=== PATIENT | male | born 1985 | race Caucasian/White ===

== ENCOUNTER → 2018-01-02 15:39 | Outpatient (CLI) | payer OTHER, SELFPAY ==
[2018-01-02 16:08] LABS: ALB/GLOB Ratio 0.8 RATIO (0.9-2.4); AST(SGOT) 29 U/L (15-37); Alanine Aminotransfer ALT/SGPT 35 U/L (16-61); Albumin, Serum 3.7 g/dL (3.2-5.0); Alkaline Phosphatase 87 U/L (45-117); Anion Gap 7 (5-15); BUN 11 mg/dL (7-18); BUN/Creat Ratio 9.5 RATIO (10-20); Calcium,Total 9.3 mg/dL (8.5-10.1); Chloride 102 mmol/L (98-107); Creatinine, Serum 1.16 mg/dL (0.70-1.30); EST Glomerular Filtration Rate 77 mL/min (>60); Est Glom Filt Rate - Afr Amer 93 mL/min (>60); Globulin 4.5 g/dL (2.2-4.2); Glucose 86 mg/dL (74-106); Potassium 4.2 mmol/L (3.5-5.1); Protein, Total 8.2 g/dL (6.4-8.2); Sodium Level 136 mmol/L (136-145)
== END ==
PROVIDERS: Family Provider Family Medicine; PCP Family Medicine
DX: A69.20 Lyme disease, unspecified (principal); R50.9 Fever, unspecified
CPT/HCPCS: 80053

== ENCOUNTER 2021-04-10 08:26 | Emergency (ER) | payer OTHER, SELFPAY ==
[2021-04-10 08:27] VITALS: BP 135/91; PULSE 97; RESP 16; TEMP 36.2; O2SAT 100; BMI 26.4
--- NOTE | 2021-04-10 08:36 | EDS_ITS ---
HPI History of Present Illness Chief Complaint: Other, Pain/Inj Narrative Narrative: 35-year-old male presenting with bilateral calf pain. He states is worse on the right. Patient states that he has had COVID-19 since . He feels better today although he has been run down a little bit. He describes her symptoms as fever, chills, body aches initially. Patient states that he has not had any chest pain or shortness of breath but did have a cough. He states that his family wanted him to get checked for blood clots due to having Covid. PFSH PFSH Medical History no medical history Home Medications amlodipine 5 mg PO DAILY 04/10/21 [History Last Taken Unknown] Allergy/AdvReac Type Severity Reaction Status Date / Time No Known Allergies Allergy Verified 11/27/13 10:04 Surgical History no surgical history Social History Smoking Status: Current every day smoker tobacco type: cigarettes ROS ROS ED Constitutional Constitutional ED: Reports chills and fever(s) Eyes Eyes: Denies blurry vision or diplopia ENT ENT ED: Denies rhinorrhea or sore throat Cardiovascular Cardiovascular: Denies chest pain, palpitations or racing heartbeat Respiratory/Chest Respiratory/Chest: Reports cough; Denies dyspnea, dyspnea on exertion or sputum Gastrointestinal Gastrointestinal: Denies abdominal pain, nausea or vomiting Genitourinary Genitourinary ED: Denies dysuria or hematuria Musculoskeletal Musculoskeletal: Reports other Details: Bilateral calf pain Integumentary Denies Abrasions or rash Neurologic Neurologic: Denies headache(s) or paresthesias EXAM Physical Exam Const Vital Signs: 04/10/21 08:27 04/10/21 08:35 04/10/21 10:10 Temperature 97.1 F L Temperature Source Temporal Pulse Rate 97 62 Respiratory Rate 16 15 Respiratory Effort Normal Respiratory Pattern Normal Blood Pressure 135/91 H 138/74 H Blood Pressure Mean 105 Pulse Ox 100 98 Oxygen Delivery Method Room Air Positive well nourished and well developed General Appearance ED: well developed and NAD; Negative for pallor HEENT Reports moist mucous membranes Negative for trauma Eyes PERRL and EOMs intact bilaterally Chest Wall inspection of chest normal Resp normal respiratory effort and clear to auscultation bilaterally Auscultation: Negative for rales, rhonchi, wheezes or diminished lung sounds Cardio regular rate and regular rhythm Extremity Extremity Narrative: Bilateral lower extremities have pain on palpation to the calves. This is greater on the right calf. No cords palpated. No edema. No rashes. Bilateral pedal pulses 2+ and symmetric. Neuro oriented x3, CN's II-XII intact bilaterally and no sensory deficits noted Sensorium / Orientation: alert Motor Exam: strength 5/5 throughout Psych mental status grossly normal Skin no rashes or lesions noted and no wounds General Skin Exam: Negative for jaundice or pallor MDM MDM MDM Narrative Medical decision making narrative: Patient presenting with concern for DVT given that he has Covid positive and his family was concerned he could have developed this. He has no history of DVT/PE. His calves are tender to palpation bilaterally with the right being greater than the left however there are no cords palpated and the compartments are soft. Did obtain duplex of the bilateral lower extremities which showed no DVTs. Patient counseled on findings . He is ambulatory without crutches. He will be discharged home to quarantine. He is counseled on stretching and icing. Patient stable discharge at this time. Impression: 1. Bilateral calf pain Radiography Diagnostic Testing: Radiology Impression Venous Doppler Study 04/10/21 08:36 Interpretation Summary No evidence for acute deep venous thrombosis bilateral lower extremities with patent and compressible bilateral great saphenous veins. Abbreviated COVID-19 protocol Ordering Physician: Nathan Tom Referring Physician: Сергей Medina Performed By: Jessica Jeffrey RVT Discharge Plan Triage Chief Complaint: Other, Pain/Inj ED Provider: Nathan Tom Dx/Rx/DC Orders Instructions: ED Leg Spasm Prescriptions: No Action amlodipine 5 mg tablet 5 mg PO DAILY RF: 0 Primary Care Provider: Сергей Medina Referrals: Сергей Medina MD [Primary Care Provider] - Disposition Disposition: Home, Self Care Discharge Date/Time: 04/10/21 10:11
--- NOTE | 2021-04-10 08:36 | VDLE_ITS ---
Reason For Study: Pain RIGHT LEFT GSV is normal. GSV is normal. Right CFV, FV and PopV are compressible. Left CFV, FV and PopV are compressible. T/P Trunk is compressible. T/P Trunk is compressible. PTV is compressible. PTV is compressible. RT PerV is compressible. LT PerV is compressible. Procedure This is a venous duplex using B-mode, color flow and spectral Doppler. Exam performed portable in ED. The exam was abbreviated due to the COVID 19 protocol. A preliminary report was called and/or faxed to [facility]. VL/Venous Duplex US - Ad Extrem Interpretation Summary No evidence for acute deep venous thrombosis bilateral lower extremities with p atent and compressible bilateral great saphenous veins. Abbreviated COVID-19 protocol Ordering Physician: Nathan Tom Referring Physician: Сергей Medina Performed By: Jessica Jeffrey RVT
[2021-04-10 10:10] VITALS: BP 138/74; PULSE 62; RESP 15; O2SAT 98
== END 2021-04-10 10:11 | disposition home or self-care (01) ==
PROVIDERS: Emergency Provider Student in an Organized Health Care Education/Training Program; PCP Family Medicine
DX: M79.661 Pain in right lower leg (principal); M79.662 Pain in left lower leg; F17.210 Nicotine dependence, cigarettes, uncomplicated; Z79.899 Other long term (current) drug therapy
CPT/HCPCS: 93970; 99282

== ENCOUNTER 2021-06-15 10:18 | Emergency (ER) | payer OTHER, SELFPAY ==
[2021-06-15 10:19] VITALS: BP 163/102; PULSE 100; RESP 16; TEMP 36.4; O2SAT 98; BMI 26.2
--- NOTE | 2021-06-15 11:36 | EDS_ITS ---
HPI History of Present Illness Chief Complaint: Flank Pain Informant: patient Onset/Context/Timing Onset: Days (5) Context: Gradual Onset Timing: Continuous and Waxes and wanes Quality: Aching Location: right flank Worsened by: Nothing Relieved by: Nothing Narrative Narrative: Patient presents with right flank pain that has been waxing and waning over the last 5 days. Patient states that he has a history of kidney stones. Patient states that he thinks he passed 1 kidney stone but still has pain in his right flank. Patient describes as aching. Patient states nothing makes it worse and nothing makes it better. Patient admits to some dysuria and hematuria. Patient denies any fevers or chills. Patient denies any nausea or vomiting. [facility] Medical History Hypertension Kidney stone Home Medications amlodipine 5 mg PO DAILY 04/10/21 [History Last Taken Unknown] hydrocodone-acetaminophen 1 tab PO Q6H PRN PRN 3 Days #10 tablet 06/15/21 [Rx Last Taken Unknown] Allergy/AdvReac Type Severity Reaction Status Date / Time acetaminophen [From Percocet] Allergy Itching Verified 06/15/21 10:20 oxycodone [From Percocet] Allergy Itching Verified 06/15/21 10:20 Social History Smoking Status: Current every day smoker tobacco type: cigarettes ROS ROS ED Constitutional Constitutional ED: Denies chills or fever(s) Eyes Eyes: Denies blurry vision or change in vision ENT ENT ED: Denies rhinorrhea or sore throat Cardiovascular Cardiovascular: Denies chest pain or palpitations Respiratory/Chest Respiratory/Chest: Denies cough or dyspnea Gastrointestinal Gastrointestinal: Denies nausea or vomiting Genitourinary Genitourinary ED: Reports dysuria and hematuria Musculoskeletal Musculoskeletal: Reports back pain; Denies neck pain Integumentary Denies abscess or rash Neurologic Neurologic: Denies headache(s) or weakness Allergic/Immunologic Allergic/Immunologic ED: Denies mouth swelling or urticaria EXAM Physical Exam Const Vital Signs: 06/15/21 10:19 06/15/21 12:45 Temperature 97.5 F L Temperature Source Temporal Pulse Rate 100 73 Respiratory Rate 16 15 Blood Pressure 163/102 H 142/69 H Blood Pressure Mean 122 93 Pulse Ox 98 96 Oxygen Delivery Method Room Air Room Air Positive well nourished and well developed General Appearance ED: well developed HEENT Reports moist mucous membranes Neck supple and no JVD Resp normal respiratory effort and clear to auscultation bilaterally Cardio regular rate, regular rhythm and no murmurs GI normal to inspection, nondistended, normoactive bowel sounds and non-tender Palpation: soft Back/Spine General Back: CVA tenderness right Extremity normal to inspection General Extremety ED: Negative for edema or tenderness General Extremity: Negative for edema Neuro oriented x3, CN's II-XII intact bilaterally and no sensory deficits noted Sensorium / Orientation: alert Motor Exam: strength 5/5 throughout Psych mental status grossly normal Skin no rashes or lesions noted MDM MDM MDM Narrative Medical decision making narrative: Patient was given IV fluids, morphine, and Zofran. CBC shows a mild leukocytosis of 13.4. Comprehensive metabolic profile showed a slightly elevated creatinine of 1.31. Urinalysis does not show any evidence of urinary tract infection. Occult blood was 50 with 0-[address] scan of the abdomen pelvis was obtained. There is a 4 mm calculus in the right mid ureter. There is hydronephrosis and hydroureter noted. This was interpreted by the radiologist and reviewed by myself. Patient was advised of his findings. Patient was given a prescription for [place]. Patient was instructed to follow-up with his primary care physician in 3 to 5 days. Patient understood and was agreeable with the plan. All questions were answered. Lab Data Attestation: I reviewed the patient's lab results. Labs: Laboratory Results - last 24 hr 06/15/21 06/15/21 06/15/21 10:30 10:30 10:30 WBC 13.4 H RBC 5.52 Hgb 15.7 Hct 48.1 MCV 87.1 MCH 28.4 MCHC 32.6 RDW Std Deviation 40.1 RDW Coeff of Ana 12.7 Plt Count 295 MPV 10.8 Immature Gran % (Auto) 0.400 Neut % (Auto) 76.5 H Lymph % (Auto) 16.5 L [place] % (Auto) 3.8 Eos % (Auto) 2.2 Baso % (Auto) 0.6 Absolute Neuts (auto) 10.3 H Absolute Lymphs (auto) 2.22 Nucleated RBC % 0 Sodium 137 Potassium 3.5 Chloride 103 Carbon Dioxide 27.0 Anion Gap 7 BUN 14 Creatinine 1.31 H Estim Creat Clear Calc 72.88 Est GFR (MDRD) Af Amer 79 Est GFR (MDRD) Non-Af 66 BUN/Creatinine Ratio 10.7 Glucose 133 H Calcium 9.6 Total Bilirubin 0.30 AST 24 ALT 46 Alkaline Phosphatase 85 Total Protein 8.0 Albumin 4.5 Globulin 3.5 Albumin/Globulin Ratio 1.3 Urine Color Yellow Urine Clarity Clear Urine pH 7.0 Ur Specific [place] 1.010 Urine Protein 15 H Urine Glucose (UA) Normal Urine Ketones Negative Urine Occult Blood 50 H Urine Nitrite Negative Urine Bilirubin Negative Urine Urobilinogen Normal Ur Leukocyte Esterase Negative Urine RBC 0-5 SEEN Urine WBC 0 SEEN Ur Squamous Epith Cells 0 SEEN Urine Bacteria 0 SEEN Urine Mucus 0 SEEN Radiography Diagnostic Testing: Clinical Impression(s) from Imaging Studies Abdomen/Pelvis CT 06/15/21 11:42 IMPRESSION: 4 mm focus in the midportion of the right ureter causing right hydronephrosis and proximal right hydroureter. Electronically Signed: Mirza Olmedo MD at 12:07 EST , Service support , Discharge Plan Triage Chief Complaint: Flank Pain ED Provider: Palomo Martin Dx/Rx/DC Orders Clinical Impression: Calculus of right ureter Instructions: ED Kidney Stone w/ Colic Prescriptions: New hydrocodone-acetaminophen [hydrocodone-acetaminophen] 1 TABLET tablet 1 tab PO Q6H PRN PRN (Reason: Pain) 3 Days Qty: 10 RF: 0 No Action amlodipine 5 mg tablet 5 mg PO DAILY RF: 0 Primary Care Provider: Сергей Medina Referrals: Сергей Medina MD [Primary Care Provider] - 3-5 Days Disposition Disposition: Home, Self Care
[2021-06-15 11:37] LABS: Absolute Lymphocyte Count 2.22 X10^3/uL (0.83-4.51); Absolute Neutrophil Count 10.3 X10^3/uL (2.0-7.7); Basophil# 0.08 X10^3/uL; Basophil% 0.6 % (0-1); Eosinophils% 2.2 % (0-5); Hematocrit 48.1 % (40-54); Hemoglobin 15.7 g/dL (13.0-16.5); Lymphocyte # 2.22 X10^3/ul (0.83-4.51); Lymphocyte % 16.5 % (19-41); Mean Corp Hgb Conc 32.6 g/dL (32-36); Mean Corpuscular Hgb 28.4 pg (27.0-32.0); Mean Corpuscular Volume 87.1 fL (80-94); Mean Platelet Vol. 10.8 fl (6.2-12.0); Monocyte# 0.51 X10^3/uL; Monocyte% 3.8 % (0-10); NRBC Flagged by Analyzer 0 % (0-5); Neutrophil # 10.27 X10^3/uL (2.7-7.7); Neutrophil % 76.5 % (47-70); Platelet Count 295 K/mm3 (150-450); RBC Distribution Width CV 12.7 % (11.6-14.6); RBC Distribution Width SD 40.1 fl (35.1-43.9); Red Blood Count 5.52 M/mm3 (4.6-6.2); White Blood Count 13.4 K/mm3 (4.4-11.0)
[2021-06-15] MEDS: 0.9% Normal Saline 1,000 ML 1000 ML IV (11:38)
[2021-06-15] MEDS: Morphine 4 MG/ML Syringe IV (11:38)
[2021-06-15] MEDS: Ondansetron 4 MG/2 ML Vial IV (11:38)
[2021-06-15 11:42] LABS: Bacteria 0 SEEN /hpf (None Seen); Mucous, Urine 0 SEEN /hpf (<or=2+); Squamous Epithelial Cells - UA 0 SEEN /hpf (0-5); White Blood Cells 0 SEEN /hpf (0-5)
--- NOTE | 2021-06-15 11:42 | CT_ITS ---
STUDY: CT ABDOMEN AND PELVIS WITHOUT CONTRAST REASON FOR EXAM: Male, 35 years old. Right flank pain RADIATION DOSAGE (If Supplied By Facility): CTDIvol = ( 6.43 ) mGy, DLP = ( 343.86 ) mGycm TECHNIQUE: Transaxial images were obtained from the dome of the diaphragm to the symphysis pubis without oral contrast, and without intravenous contrast. Sagittal and coronal images were reconstructed. Individualized dose optimization techniques were used for this CT. COMPARISON: None. FINDINGS: The visualized lung bases are unremarkable. The visualized portions of the heart are within normal limits. Normal liver. Normal gallbladder and extrahepatic biliary system. Normal spleen. Normal pancreas. Normal bilateral adrenal glands. Punctate calcification in the upper pole calyx of the right kidney. Mild degree of right hydronephrosis and right hydroureter with perinephric and periureteric stranding due to a 4 mm calculus in the mid portion of the right ureter. Normal left kidney. Normal visualized stomach. Normal small intestine. Normal colon. The appendix is visualized and appears normal. There is scattered atherosclerotic calcification of the common iliac arteries,, without a demonstrated aneurysm. Normal inferior vena cava. Normal retroperitoneum. Normal urinary bladder. Normal abdominal wall. Normal osseous structures. CT/Abdomen/Pelvis without Cont IMPRESSION: 4 mm focus in the midportion of the right ureter causing right hydronephrosis and proximal right hydroureter. Electronically Signed: Mirza Olmedo MD at 12:07 EST , Service support ,
[2021-06-15 11:49] LABS: Color, Urine Yellow (Yellow); Glucose, Dipstick Normal (Normal); Ketone-Dipstick Negative (Negative); Leukocyte Esterase-Dipstick Negative /ul (Negative); Nitrite-Dipstick Negative (Negative); Occult Blood-Urine 50 /ul (Negative); Protein-Dipstick 15 mg/dl (Negative); Urine Bilirubin Dipstick Negative (Negative); Urine Clarity Clear (Clear); Urine Urobilinogen Normal (Normal)
[2021-06-15 11:54] LABS: Red Blood Cells-Urine 0-5 SEEN /hpf (0-5)
[2021-06-15 12:00] LABS: ALB/GLOB Ratio 1.3 RATIO (0.9-2.4); AST(SGOT) 24 U/L (15-37); Alanine Aminotransfer ALT/SGPT 46 U/L (16-61); Albumin, Serum 4.5 g/dL (3.2-5.0); Alkaline Phosphatase 85 U/L (45-117); Anion Gap 7 (5-15); BUN 14 mg/dL (7-18); BUN/Creat Ratio 10.7 RATIO (10-20); Calcium,Total 9.6 mg/dL (8.5-10.1); Chloride 103 mmol/L (98-107); Creatinine, Serum 1.31 mg/dL (0.70-1.30); EST Glomerular Filtration Rate 66 mL/min (>60); Est Glom Filt Rate - Afr Amer 79 mL/min (>60); Estimated Creatinine Clearance 72.88 ml/min; Globulin 3.5 g/dL (2.2-4.2); Glucose 133 mg/dL (74-106); Potassium 3.5 mmol/L (3.5-5.1); Sodium Level 137 mmol/L (136-145)
[2021-06-15 12:45] VITALS: BP 142/69; PULSE 73; RESP 15; O2SAT 96
[2021-06-15 15:14] VITALS: BP 147/99; PULSE 79; RESP 14; O2SAT 99
== END 2021-06-15 15:14 | disposition home or self-care (01) ==
PROVIDERS: Emergency Provider Emergency Medicine; PCP Family Medicine
DX: N20.1 Calculus of ureter (principal); F17.210 Nicotine dependence, cigarettes, uncomplicated; I10 Essential (primary) hypertension; Z87.442 Personal history of urinary calculi; Z79.899 Other long term (current) drug therapy
CPT/HCPCS: 74176; 80053; 81001; 85025; 96374; 96375; 99283; J7030; A4216; J2405

== ENCOUNTER 2021-07-03 02:11 | Emergency (ER) | payer OTHER, SELFPAY ==
[2021-07-03 02:13] VITALS: BP 151/96; PULSE 79; RESP 18; TEMP 36.6; O2SAT 98; BMI 26.6
--- NOTE | 2021-07-03 02:25 | EDS_ITS ---
HPI HPI - GI History of Present Illness Chief Complaint: Flank Pain Informant: patient Abdominal Pain/Flank Pain Onset: Weeks (2) Context: Sudden Onset Timing: Waxes and wanes Quality: Aching Location: Right Flank Current Severity: Mild Maximum Severity: Severe Worsened by: Nothing Relieved by: - (hydrocodone/oxycodone) Nausea/Vomiting/Emesis GI Symptom: Positive for Nausea; Negative for Vomiting Diarrhea/Melena/Hematochezia GI Symptom: Negative for Diarrhea, Melena and Hematochezia Associated Symptoms Associated Symptoms: Positive for Frequency; Negative for Dysuria, Hematuria and Urgency Narrative Narrative: Patient with a longstanding history of kidney stones, never required surgery to get them out and has always passed them, but this 1 has been bothering him for about 2 weeks and he has never had one last this long and still hurt this bad. The pain does not seem to move, mostly his right back and flank, not really in his abdomen, and he has been nauseated with it but no vomiting. No fevers but he did have some chills study could not explain, no other illness or cough, and he states he has developed some weird sensations when urinating although it does not burn, it makes the pain in the right flank worse when he urinates, and he is going more frequently. This was not the case 1 week ago when he was seen here and had a 4 mm mid ureteral stone diagnosed with right hydronephrosis. [facility] Medical History Hypertension Kidney stone Home Medications amlodipine 5 mg PO DAILY 04/10/21 [History Last Taken Unknown] ondansetron 8 mg PO Q8H PRN PRN #12 tab 07/03/21 [Rx Last Taken Unknown] oxycodone-acetaminophen 1 tab PO Q6H PRN PRN 3 Days #12 tablet 07/03/21 [Rx Last Taken Unknown] Allergy/AdvReac Type Severity Reaction Status Date / Time acetaminophen [From Percocet] Allergy Itching Verified 07/03/21 02:15 oxycodone [From Percocet] Allergy Itching Verified 07/03/21 02:15 Social History Smoking Status: Current every day smoker tobacco type: cigarettes ROS ROS ED Constitutional Constitutional ED: Reports chills; Denies fever(s) Eyes Eyes: Denies change in vision or diplopia ENT ENT ED: Denies rhinorrhea or sore throat Cardiovascular Cardiovascular: Denies chest pain or palpitations Respiratory/Chest Respiratory/Chest: Denies cough or dyspnea Gastrointestinal Gastrointestinal: Reports nausea; Denies abdominal pain, diarrhea or vomiting Genitourinary Genitourinary ED: Reports as per HPI, flank pain and urinary frequency; Denies dysuria or hematuria Musculoskeletal Musculoskeletal: Denies back pain or neck pain Integumentary Denies abscess or rash Neurologic Neurologic: Denies headache(s), paresthesias or weakness Psychiatric Psychiatric: Denies anxiety or suicidal thoughts EXAM Physical Exam Const Vital Signs: 07/03/21 02:13 Temperature 97.9 F Temperature Source Temporal Pulse Rate 79 Respiratory Rate 18 Blood Pressure 151/96 H Blood Pressure Mean 114 Pulse Ox 98 Oxygen Delivery Method Room Air Positive well nourished and well developed General Appearance ED: well developed and NAD HEENT Reports moist mucous membranes normocephalic and atraumatic Eyes PERRL and EOMs intact bilaterally Neck full ROM and supple Resp normal respiratory effort and clear to auscultation bilaterally Cardio regular rate, regular rhythm and no murmurs GI non-tender and non-distended Auscultation: normoactive bowel sounds Palpation: soft Back/Spine General Back: CVA tenderness right and other FROM Extremity normal to inspection General Extremety ED: Negative for edema, pulses abnormal or tenderness General Extremity: Negative for edema or pulses abnormal Neuro oriented x3, CN's II-XII intact bilaterally and no sensory deficits noted Sensorium / Orientation: awake and alert Motor Exam: strength 5/5 throughout Skin no rashes or lesions noted and no wounds MDM MDM MDM Narrative Medical decision making narrative: Patient controlled his own pain by taking oxycodone prior to coming here and remained stable. I gave him some nausea medicine and a dose of Toradol, this helped some as well and he was feeling well at discharge. His urine shows no sign of infection. Perhaps his urinary symptoms indicate progressive movement of the stone within the ureter. I do not think he needs to be reimaged, I did review the results of his CT 1 week ago showing a 4 mm stone. Expectant management is indicated at this time, reassured him and I am happy to prescribe him some more pain medication along with urine strainers to use at home, and refer him to urology. Of note, oxycodone is in his list of allergies with itching, he states he took 1 several hours ago and he has not itched and it did help and he would like that which is fine. Lab Data Attestation: I reviewed the patient's lab results. Labs: Laboratory Results - last 24 hr 07/03/21 02:35 Urine Color Yellow Urine Clarity Clear Urine pH 6.5 Ur Specific [place] 1.020 Urine Protein Negative Urine Glucose (UA) Normal Urine Ketones Negative Urine Occult Blood 25 H Urine Nitrite Negative Urine Bilirubin Negative Urine Urobilinogen Normal Ur Leukocyte Esterase Negative Urine RBC 0-5 SEEN Urine WBC 0 SEEN Ur Squamous Epith Cells 0 SEEN Amorphous Sediment 1+ Urine Bacteria 1+ Urine Mucus 0 SEEN Discharge Plan Triage Chief Complaint: Flank Pain ED Provider: Bentley Villatoro Dx/Rx/DC Orders Clinical Impression: Ureterolithiasis, Renal colic on right side Instructions: ED Kidney Stone w/ Colic Prescriptions: New ondansetron [ondansetron] 4 MG tablet 8 mg PO Q8H PRN PRN (Reason: Nausea) Qty: 12 RF: 0 oxycodone-acetaminophen [oxycodone-acetaminophen] 1 TABLET tablet 1 tab PO Q6H PRN PRN (Reason: Pain) 3 Days Qty: 12 RF: 0 No Action amlodipine 5 mg tablet 5 mg PO DAILY RF: 0 Primary Care Provider: Сергей Medina Referrals: Сергей Medina MD [Primary Care Provider] - Titi Abarca MD [STAFF PHYSICIAN] - 1 Week if not improving Disposition Disposition: Home, Self Care
[2021-07-03] MEDS: Ketorolac 60 MG/2 ML Vial IM (02:32)
[2021-07-03] MEDS: Ondansetron ODT 4 MG Tablet 8 MG PO (02:32)
[2021-07-03 02:41] LABS: Mucous, Urine 0 SEEN /hpf (<or=2+); Squamous Epithelial Cells - UA 0 SEEN /hpf (0-5); White Blood Cells 0 SEEN /hpf (0-5)
[2021-07-03 02:47] LABS: Color, Urine Yellow (Yellow); Glucose, Dipstick Normal (Normal); Ketone-Dipstick Negative (Negative); Leukocyte Esterase-Dipstick Negative /ul (Negative); Nitrite-Dipstick Negative (Negative); Occult Blood-Urine 25 /ul (Negative); Protein-Dipstick Negative (Negative); Urine Bilirubin Dipstick Negative (Negative); Urine Clarity Clear (Clear); Urine Urobilinogen Normal (Normal); Urine pH 6.5 (5.0 - 8.0)
[2021-07-03 03:23] LABS: Amorphous Sediment 1+; Bacteria 1+ /hpf (None Seen); Red Blood Cells-Urine 0-5 SEEN /hpf (0-5)
== END 2021-07-03 03:42 | disposition home or self-care (01) ==
PROVIDERS: Emergency Provider Emergency Medicine; PCP Family Medicine
DX: N20.1 Calculus of ureter (principal); N23 Unspecified renal colic; F17.210 Nicotine dependence, cigarettes, uncomplicated; I10 Essential (primary) hypertension; Z87.442 Personal history of urinary calculi; Z79.899 Other long term (current) drug therapy
CPT/HCPCS: 81001; 96372; 99282